=== PATIENT | female | born 1950 | race Caucasian/White ===

== ENCOUNTER 2016-10-02 20:37 | Inpatient (IN) | payer MEDICARE, BC ==
--- NOTE | ~2016-10-02 | HP ---
History And Physical [facility] [address] [place]. [address] NAME: DAMASO POE : 48 STATUS : ADM IN [facility]#: [id number] AGE: 66 ADM/REG DATE : 10/02/16 MR#: [id number] REPORT SERV DATE: 10/03/16 DICTATED BY: PHAN TAPIA DATE: 10/02/16 REPORT STATUS : Draft TRANSCRIBED BY: MODL DATE: 10/02/16 DATE OF ADMISSION: 10/02/2016 CHIEF COMPLAINT: Fever and chills today. HISTORY OF PRESENT ILLNESS: This is a 66-year-old female, who presents to the emergency room at [facility] with the above-mentioned complaint. History is obtained from the patient, her family who is at bedside, and reviewing data available on the [employer] system. According to the patient and her family, she had recently had a CABG done emergently after an angiogram was performed by her forms examiner. She was rushed to [facility] where she had the procedure. Following the coronary artery bypass she was transferred to [facility] [place] for rehabilitation where she spent the last six days. Today, she was not feeling well at all and had shaking chills. The nurse there took her vitals and found her to be febrile. She was immediately sent over here to be evaluated. In the emergency room, she met sepsis by criteria, had a urinary tract infection, and the right lower extremity surgical sites appear to be infected or inflamed. Hospitalist Service is asked to admit her for further evaluation and treatment. At the time of my evaluation, she denied any chest pain or palpitations. She had no orthopnea. She had no cough, hemoptysis, night sweats, or weight loss. She has not had any falls or loss of consciousness. She did not have any nausea, vomiting, diarrhea, hematemesis, hematochezia, or hematuria. No other history of recent travel or exposures, other than those mentioned above. PAST MEDICAL HISTORY: Significant for history of coronary artery disease status post CABG recently, history of essential hypertension, hyperlipidemia, and a history of mastectomy in the past as well. SOCIAL HISTORY: She does not smoke, drink, or use recreational drugs. FAMILY HISTORY: Noncontributory. MEDICATIONS: Medications at home were reviewed by me in the chart today and reordered by me. REVIEW OF SYSTEMS: As in history of present illness. All other system were reviewed in detail and are quite unremarkable. PHYSICAL EXAMINATION: GENERAL: This is a pleasant 66-year-old, not in any acute distress. HEENT: Her head is atraumatic and normocephalic. She is alert, awake, oriented to time, place, and person. Her pupils are equal, reacting to light and accommodating. External ocular muscles are intact. Membranes are moist and pink. Sclerae are nonicteric. History And Physical [address] [place]. [address] NAME: DAMASO POE : [birth year] STATUS : ADM IN PAT#: [id number] AGE: 66 ADM/REG DATE : 10/02/16 MR#: [id number] REPORT SERV DATE: 10/03/16 DICTATED BY: PHAN TAPIA DATE: 10/02/16 REPORT STATUS : Draft TRANSCRIBED BY: AMA DATE: 10/02/16 NECK: Supple with no jugular venous distention, lymphadenopathy, or thyromegaly. LUNGS: Auscultation of her lungs revealed few crackles in the left base, otherwise without any expiratory wheezes. Trachea appeared to be in the midline. HEART: Auscultation of her heart revealed normal rate and rhythm with no murmurs, rubs, or gallops appreciated. ABDOMEN: Soft and nontender. Bowel sounds are present. EXTREMITIES: Show redness and increased warmth in the surgical sites in the right lower extremity. There was no calf tenderness or increase in girth. No cyanosis or clubbing. NEUROLOGIC: Grossly intact. No focal sensory or motor deficits. Higher functions appeared intact. Gait was not examined. VITAL SIGNS: Her vital signs today showed a temperature of 99.9, pulse 105, respirations 19 a minute, blood pressure was 127/83. Oxygen saturations were 97%, breathing 2 L of oxygen via nasal cannula. LABORATORY DATA: Her procalcitonin was less than 0.05. CMP was essentially within normal limits with a glucose of 101. CBC showed a white blood cell count of 9,900, hemoglobin was 8.6, hematocrit 25.8, and platelet count was 414,000. Prothrombin time was 15.9 with an INR of 1.3. Urinalysis showed small leukocyte esterase, nitrite was negative. There were 15 wbc's seen. Films of the chest x-ray were reviewed by me on the PACS today and interpreted by me. No prior films are available for comparison. There is median sternotomy with the CABG done, and left-sided effusion with atelectasis. A 12-lead EKG done in the emergency room was reviewed and interpreted by me. There is normal sinus rhythm at a rate of 92 per minute without any acute ST elevations. IMPRESSION: 1. Urinary tract infection. 2. Sepsis by criteria. 3. Right lower extremity surgical site infection. 4. Recent coronary artery bypass graft at [facility]. 5. Left lower lobe atelectasis and small effusion. 6. Anemia. 7. Essential hypertension. 8. Hyperlipidemia. 9. History of mastectomy. PLAN: We will admit Mrs. Poe to the Hospitalist Service with telemetry for close monitoring. We will obtain cultures, and start her on empiric IV antibiotics. We will start her on cefepime and vancomycin. We will go ahead and consult Infectious Disease to see her in the morning. We will also get a venous Doppler of the lower extremity as well. History And Physical [address] [address] NAME: DAMASO POE : [birth year] STATUS : ADM IN [facility]#: [id number] AGE: 66 ADM/REG DATE : 10/02/16 MR#: [id number] REPORT SERV DATE: 10/03/16 DICTATED BY: PHAN TAPIA DATE: 10/02/16 REPORT STATUS : Draft TRANSCRIBED BY: AMA DATE: 10/02/16 Her left-sided effusion and atelectasis could be secondary to the coronary artery bypass surgery, but we will follow this closely. An echocardiogram may be useful as well. We will continue other home medications and treatments at this time, and also place her on unfractionated heparin for DVT prophylaxis while here. I have discussed the above plans with the patient and the family. Questions were answered and they are agreeable to the above recommendations. Hospitalist Service will be following her during her stay here. /AMA Phan Tapia M.D. / [id number] CC: Claudio Ulloa MD
--- NOTE | ~2016-10-02 | DS ---
Discharge Summary [address] [address] NAME: DAMASO FULTON : 48 STATUS : DIS IN PAT#: [id number] AGE: 66 ADM/REG DATE : 10/02/16 MR#: [id number] REPORT SERV DATE: 10/07/16 DICTATED BY: RIMA WILKINS DATE: 10/06/16 REPORT STATUS : Draft TRANSCRIBED BY: MODL DATE: 10/06/16 ADMISSION DATE: 10/02/2016 DISCHARGE DATE: 10/06/2016 DISCHARGE DIAGNOSES: 1. Sepsis. 2. Left lower lobe pneumonia. 3. Group B strep urinary tract infection. 4. Right lower extremity cellulitis at areas of recent vein graft harvest site. 5. Acute on chronic anemia. Hemoccult negative. 6. Systemic hypertension. 7. Postop day 13 CABG done at [facility] at [place]. 8. Hyperlipoproteinemia. 9. Gastroesophageal reflux disease. 10.Fibrocystic breast disease with previous surgery. 11.Subclinical hypothyroidism. OPERATIONS AND PROCEDURES: None. HISTORY OF PRESENT ILLNESS: This is a 66-year-old white female, who was triaged in the emergency room on 10/02/2016 at 1946 hours, referred from rehab in [facility] for possible cellulitis of right lower extremity. Admission vital signs in the ER, blood pressure 127/83, temp 101, pulse 105, respirations 19, O2 saturation 97% on 2 L. After evaluation in the emergency room, she was referred to the Hospitalist Service for admission. She was seen by Dr. Phan Fairchild and admitted as described on admission history and physical examination. ADDITIONAL HISTORY: Per Dr. Fairchild. PHYSICAL EXAMINATION: Per Dr. Fairchild. ADMISSION LABORATORY: Per Dr. Fairchild. HOSPITAL COURSE: She was admitted by Dr. Fairchild with; 1. Sepsis. 2. Urinary tract infection. 3. Right lower extremity surgical site infection. 4. Left lower lobe atelectasis and small effusion. 5. Recent CABG, [facility]. 6. Anemia. 7. Hypertension. 8. Hyperlipidemia. Cultures were obtained. She was started on cefepime and vancomycin. She was admitted to 6 Discharge Summary [address] [address] NAME: DAMASO FULTON : 48 STATUS : DIS IN PAT#: [id number] AGE: 66 ADM/REG DATE : 10/02/16 MR#: [id number] REPORT SERV DATE: 10/07/16 DICTATED BY: RIMA WILKINS DATE: 10/06/16 REPORT STATUS : Draft TRANSCRIBED BY: AMA DATE: 10/06/16 [place]. Her hospitalist care was assumed by the undersigned. Additional imaging was done after seen by the undersigned to further evaluate her presentation. A CT scan of her chest without contrast was done, which showed elevated left hemidiaphragm with a [id number] left pleural effusion and consolidation in the left base. There was a small right pleural effusion and right basilar atelectasis. There was COPD with interstitial fibrosis. There were numerous bilateral calcified granuloma. There were no lung masses or adenopathy. Venous ultrasound imaging of both lower extremities did not show any evidence for DVT. An echocardiogram showed intact left ventricular systolic and diastolic function. Right ventricular systolic function was normal. There was mild tricuspid valve regurgitation. On admission, her white blood cell count was 9.9 and remained normal during her hospitalization. A procalcitonin on admission was less than 0.05 and remained at this level. A C-reactive protein done post 5 days of antimicrobial therapy was 26.7. Culture data obtained on admission included a urine which grew 75,000 colonies of group B strep. Two blood cultures were drawn. No growth was present. She did not have any urinary symptoms on presentation or during her hospitalization. She did not have any cough, but did have some positional chest pain on admission, which improved by the time of discharge. Her right lower extremity had flower-incisional erythema present on admission, dramatically improved during her hospitalization. There were no hospital complications evident. Her hemoglobin was 8.6 on admission and 8 at discharge with additional evaluation including 3 stool Hemoccults that were negative. Her ferritin was high at 172, B12 at 1444, and a serum protein electrophoresis did not show any monoclonal protein. She was noted to have subclinical hypothyroidism with a TSH of 6.79 and a free T4 of 1.17. This will need to be followed in the outpatient setting. Her physical capabilities improved during her hospitalization. She thought she likely could go home rather than back to [facility]. Physical therapy evaluation was done today. Impression was home with home health care PT with family assistance and home equipment including a rolling walker and bedside commode. Today, it is felt that she has achieved a level of improvement and stability where she can be safely discharged home to have the above-mentioned home health care PT evaluation and treatment. She will have a bedside commode and rolling walker. She is to be called regarding Cardiology followup at [place] and Cardiovascular Surgery followup in [place]. An appointment has been made for her to see Dr. Tacho Meza, her primary Discharge Summary [address] [address] NAME: DAMASO FULTON : 48 STATUS : DIS IN PAT#: [id number] AGE: 66 ADM/REG DATE : 10/02/16 MR#: [id number] REPORT SERV DATE: 10/07/16 DICTATED BY: RIMA WILKINS DATE: 10/06/16 REPORT STATUS : Draft TRANSCRIBED BY: AMA DATE: 10/06/16 care physician in 1 week. Having completed 5 days of vancomycin and cefepime, she will be discharged home on 5 days of Duricef 1000 mg to take twice daily for the next 5 days. Her other home medications will be aspirin 81 mg daily, Lipitor 40 mg daily, docusate 100 mg twice daily, magnesium oxide 40 mg daily, Lopressor 25 mg twice daily, Prilosec 20 mg daily. DISCHARGE TIME: Greater than 30 minutes. DD/AMA Rima Wilkins M.D. / [id number] CC: Claudio Ulloa III, M.D.
[2016-10-02 20:28] LABS: BASOPHILS 0.2 %; BASOPHILS ABSOLUTE 0.02 10/3/uL (0.0-0.16); EOSINOPHILS 0.8 %; EOSINOPHILS ABSOLUTE 0.08 10/3/uL (0.0-0.53); ER CBC TAT 0 Hrs 03 Mins; HEMATOCRIT 25.8 % (36.0-48.0); HEMOGLOBIN 8.6 g/dL (12.0-16.0); IMMATURE GRANULOCYTES 0.3 %; IMMATURE GRANULOCYTES ABSOLUTE 0.03 10/3/uL (0.0-0.11); LYMPHOCYTES 15.7 %; LYMPHOCYTES ABSOLUTE 1.55 10/3/uL (0.67-4.30); MANUAL DIFF NO %; MEAN CORPUS HGB CONC 33.3 g/dL (32.0-36.0); MEAN CORPUSCULAR HEMOGLOB 31.5 pg (26.0-34.0); MEAN CORPUSCULAR VOLUME 94.5 fL (80-100); MEAN PLATELET VOLUME 9.4 fL (9.2-13.0); MONOCYTES 9.4 %; MONOCYTES ABSOLUTE 0.93 10/3/uL (0.21-1.20); NEUTROPHILS 73.6 %; NEUTROPHILS ABSOLUTE 7.28 10/3/uL (2.02-8.40); PLATELET COUNT 414 10/3/uL (150-400); RBC DISTRIBUTION WIDTH 14.5 % (12.0-16.0); RED CELL COUNT 2.73 10/6/uL (4.0-5.6); WHITE BLOOD CELLS 9.9 10/3/uL (4.5-10.5)
[2016-10-02 20:39] LABS: INTERNATIONAL NORMAL RATI 1.3 UNITS (-); PARTIAL THROMBO TIME 36.5 SEC (22.5-37.2); PROTIME (NOT ORD) 15.9 SEC (12.0-14.5)
[2016-10-02 20:43] LABS: A/G RATIO 0.8 (0.7-1.9); ALBUMIN 2.9 G/DL (3.5-5.0); ALKALINE PHOSPHATASE 65 U/L (45-117); BUN (BLOOD UREA NITROGEN) 10 MG/DL (6-23); CHLORIDE, SERUM 110 MMOL/L (96-112); CO2 (CARBON DIOXIDE) 27 MMOL/L (24-34); CREATININE 0.66 MG/DL (0.55-1.02); GFR AFRICAN AMERICAN 106 ML/MIN (>=60); GFR NON AFRICAN AMERICAN 91 ML/MIN (>=60); GLOBULIN 3.6 G/DL (2.5-4.1); GLUCOSE, SERUM 101 MG/DL (60-99); POTASSIUM, SERUM 3.7 MMOL/L (3.5-5.3); SGOT(AST) 13 U/L (5-40); SGPT(ALT) 30 U/L (5-65); SODIUM, SERUM 143 MMOL/L (135-148); TOTAL BILIRUBIN 0.5 MG/DL (0-1.2); TOTAL PROTEIN 6.5 G/DL (6.0-8.5)
[2016-10-02 20:46] LABS: LACTATE 0.9 MMOL/L (0.3-2.4)
[2016-10-02 21:10] LABS: ASCORBIC ACID (UR NOT ORDER) NEG (NEG); BILIRUBIN, URINE NEGATIVE (NEG); ER URINALYSIS TAT 0 Hrs 00 Mins; KETONE, URINE NEGATIVE (NEG); LEUKOCYTE ESTERASE(NOT OR SMALL (NEG); NITRITE (URINE) NEG (NEG); WBC (NOT ORDERED) (RFLEX) 15 (0-5)
[2016-10-02 21:37] LABS: PROCALCITONIN <0.05 ng/mL (<0.5)
[2016-10-02] MEDS ORDERED: LIPITOR40 PO (22:03)
[2016-10-02] MEDS ORDERED: ASAB PO (22:03)
[2016-10-02] MEDS ORDERED: MAGOX4 PO (22:04)
[2016-10-02] MEDS ORDERED: PRILO PO (22:04)
[2016-10-02] MEDS ORDERED: FERROUS SULF325 M1 PO (22:04)
[2016-10-02] MEDS ORDERED: DOCUSOFT S100 MG PO (22:04)
[2016-10-02] MEDS ORDERED: LOP25 PO (22:04)
[2016-10-03 05:41] LABS: BASOPHILS 0.1 %; BASOPHILS ABSOLUTE 0.01 10/3/uL (0.0-0.16); EOSINOPHILS 1.5 %; HEMOGLOBIN 7.6 g/dL (12.0-16.0); IMMATURE GRANULOCYTES 0.3 %; IMMATURE GRANULOCYTES ABSOLUTE 0.02 10/3/uL (0.0-0.11); LYMPHOCYTES 27.4 %; LYMPHOCYTES ABSOLUTE 1.85 10/3/uL (0.67-4.30); MEAN CORPUS HGB CONC 33.5 g/dL (32.0-36.0); MEAN CORPUSCULAR HEMOGLOB 31.4 pg (26.0-34.0); MEAN CORPUSCULAR VOLUME 93.8 fL (80-100); MEAN PLATELET VOLUME 9.3 fL (9.2-13.0); MONOCYTES 12.5 %; MONOCYTES ABSOLUTE 0.84 10/3/uL (0.21-1.20); NEUTROPHILS 58.2 %; NEUTROPHILS ABSOLUTE 3.92 10/3/uL (2.02-8.40); PLATELET COUNT 371 10/3/uL (150-400); RBC DISTRIBUTION WIDTH 14.6 % (12.0-16.0); RED CELL COUNT 2.42 10/6/uL (4.0-5.6); WHITE BLOOD CELLS 6.7 10/3/uL (4.5-10.5)
[2016-10-03 05:46] LABS: HEMATOCRIT 22.7 % (36.0-48.0); MANUAL DIFF NO %
[2016-10-03 05:51] LABS: BUN (BLOOD UREA NITROGEN) 9 MG/DL (6-23); CALCIUM, SERUM 8.7 MG/DL (8.5-10.4); CHLORIDE, SERUM 113 MMOL/L (96-112); CO2 (CARBON DIOXIDE) 24 MMOL/L (24-34); CREATININE 0.51 MG/DL (0.55-1.02); GFR AFRICAN AMERICAN 115 ML/MIN (>=60); GFR NON AFRICAN AMERICAN 100 ML/MIN (>=60); GLUCOSE, SERUM 91 MG/DL (60-99); PHOSPHORUS, SERUM 2.7 MG/DL (2.5-4.5); POTASSIUM, SERUM 3.5 MMOL/L (3.5-5.3); SODIUM, SERUM 145 MMOL/L (135-148)
[2016-10-03 12:17] LABS: T PROTEIN (ELECT)(NOT OR 5.9 G/DL (6.0-8.5)
[2016-10-03 12:41] LABS: ULTRASENSITIVE TSH 6.79 MCIU/ML (0.358-3.740)
[2016-10-04 05:08] LABS: BASOPHILS 0.2 %; BASOPHILS ABSOLUTE 0.01 10/3/uL (0.0-0.16); EOSINOPHILS 2.1 %; EOSINOPHILS ABSOLUTE 0.13 10/3/uL (0.0-0.53); HEMATOCRIT 23.7 % (36.0-48.0); HEMOGLOBIN 7.9 g/dL (12.0-16.0); IMMATURE GRANULOCYTES 0.2 %; IMMATURE GRANULOCYTES ABSOLUTE 0.01 10/3/uL (0.0-0.11); LYMPHOCYTES 30.9 %; MEAN CORPUS HGB CONC 33.3 g/dL (32.0-36.0); MEAN CORPUSCULAR HEMOGLOB 31.3 pg (26.0-34.0); MEAN PLATELET VOLUME 9.2 fL (9.2-13.0); MONOCYTES 11.4 %; NEUTROPHILS 55.2 %; NEUTROPHILS ABSOLUTE 3.39 10/3/uL (2.02-8.40); PLATELET COUNT 386 10/3/uL (150-400); RBC DISTRIBUTION WIDTH 14.4 % (12.0-16.0); RED CELL COUNT 2.52 10/6/uL (4.0-5.6); WHITE BLOOD CELLS 6.1 10/3/uL (4.5-10.5)
[2016-10-04 05:10] LABS: MANUAL DIFF NO %
[2016-10-04 05:17] LABS: BUN (BLOOD UREA NITROGEN) 9 MG/DL (6-23); CHLORIDE, SERUM 112 MMOL/L (96-112); CO2 (CARBON DIOXIDE) 25 MMOL/L (24-34); CREATININE 0.61 MG/DL (0.55-1.02); GFR AFRICAN AMERICAN 109 ML/MIN (>=60); GFR NON AFRICAN AMERICAN 94 ML/MIN (>=60); GLUCOSE, SERUM 82 MG/DL (60-99); POTASSIUM, SERUM 3.4 MMOL/L (3.5-5.3); SODIUM, SERUM 146 MMOL/L (135-148)
[2016-10-05 05:19] LABS: BASOPHILS 0.1 %; BASOPHILS ABSOLUTE 0.01 10/3/uL (0.0-0.16); EOSINOPHILS 1.5 %; EOSINOPHILS ABSOLUTE 0.11 10/3/uL (0.0-0.53); HEMATOCRIT 23.5 % (36.0-48.0); HEMOGLOBIN 7.6 g/dL (12.0-16.0); IMMATURE GRANULOCYTES 0.3 %; IMMATURE GRANULOCYTES ABSOLUTE 0.02 10/3/uL (0.0-0.11); LYMPHOCYTES 25.2 %; LYMPHOCYTES ABSOLUTE 1.83 10/3/uL (0.67-4.30); MEAN CORPUS HGB CONC 32.3 g/dL (32.0-36.0); MEAN CORPUSCULAR HEMOGLOB 30.5 pg (26.0-34.0); MEAN CORPUSCULAR VOLUME 94.4 fL (80-100); MEAN PLATELET VOLUME 9.2 fL (9.2-13.0); MONOCYTES 10.5 %; MONOCYTES ABSOLUTE 0.76 10/3/uL (0.21-1.20); NEUTROPHILS 62.4 %; NEUTROPHILS ABSOLUTE 4.53 10/3/uL (2.02-8.40); PLATELET COUNT 424 10/3/uL (150-400); RED CELL COUNT 2.49 10/6/uL (4.0-5.6); WHITE BLOOD CELLS 7.3 10/3/uL (4.5-10.5)
[2016-10-05 05:23] LABS: BUN (BLOOD UREA NITROGEN) 7 MG/DL (6-23); CALCIUM, SERUM 8.7 MG/DL (8.5-10.4); CHLORIDE, SERUM 115 MMOL/L (96-112); CO2 (CARBON DIOXIDE) 25 MMOL/L (24-34); CREATININE 0.58 MG/DL (0.55-1.02); GFR AFRICAN AMERICAN 111 ML/MIN (>=60); GFR NON AFRICAN AMERICAN 95 ML/MIN (>=60); GLUCOSE, SERUM 98 MG/DL (60-99); MANUAL DIFF NO %; PHOSPHORUS, SERUM 2.6 MG/DL (2.5-4.5); POTASSIUM, SERUM 3.8 MMOL/L (3.5-5.3); SODIUM, SERUM 145 MMOL/L (135-148)
[2016-10-05 13:22] LABS: FREE T4 1.17 NG/DL (0.76-1.46); VANCOMYCIN TROUGH 13.2 MCG/ML (10.0-20.0)
[2016-10-06 06:06] LABS: BASOPHILS 0.3 %; BASOPHILS ABSOLUTE 0.02 10/3/uL (0.0-0.16); EOSINOPHILS 2.9 %; EOSINOPHILS ABSOLUTE 0.21 10/3/uL (0.0-0.53); HEMATOCRIT 24.6 % (36.0-48.0); IMMATURE GRANULOCYTES 0.1 %; IMMATURE GRANULOCYTES ABSOLUTE 0.01 10/3/uL (0.0-0.11); LYMPHOCYTES 29.1 %; LYMPHOCYTES ABSOLUTE 2.14 10/3/uL (0.67-4.30); MEAN CORPUS HGB CONC 32.5 g/dL (32.0-36.0); MEAN CORPUSCULAR HEMOGLOB 30.7 pg (26.0-34.0); MEAN CORPUSCULAR VOLUME 94.3 fL (80-100); MEAN PLATELET VOLUME 9.1 fL (9.2-13.0); MONOCYTES 10.5 %; MONOCYTES ABSOLUTE 0.77 10/3/uL (0.21-1.20); NEUTROPHILS 57.1 %; NEUTROPHILS ABSOLUTE 4.21 10/3/uL (2.02-8.40); PLATELET COUNT 464 10/3/uL (150-400); RBC DISTRIBUTION WIDTH 14.3 % (12.0-16.0); RED CELL COUNT 2.61 10/6/uL (4.0-5.6); WHITE BLOOD CELLS 7.4 10/3/uL (4.5-10.5)
[2016-10-06 06:07] LABS: MANUAL DIFF NO %
[2016-10-06 06:22] LABS: BUN (BLOOD UREA NITROGEN) 5 MG/DL (6-23); CALCIUM, SERUM 9.2 MG/DL (8.5-10.4); CHLORIDE, SERUM 111 MMOL/L (96-112); CO2 (CARBON DIOXIDE) 27 MMOL/L (24-34); CREATININE 0.53 MG/DL (0.55-1.02); GFR AFRICAN AMERICAN 114 ML/MIN (>=60); GFR NON AFRICAN AMERICAN 98 ML/MIN (>=60); GLUCOSE, SERUM 92 MG/DL (60-99); POTASSIUM, SERUM 3.8 MMOL/L (3.5-5.3); SODIUM, SERUM 143 MMOL/L (135-148)
[2016-10-06 06:29] LABS: C-REACTIVE PROTEIN 26.7 MG/L (<8.0)
[2016-10-06 07:30] LABS: PROCALCITONIN 0.05 ng/mL (<0.5)
[2016-10-06 12:54] LABS: ALB RELATIVE % 52.4 % (60.0-89.0); ALBUMIN (ELECTRO) 3.09 GM/DL (3.2-5.5); ALPHA 1 (ELECTRO) 0.38 GM/DL (0.1-0.4); ALPHA 1 RELAT % (NOT ORD) 6.5 % (1.0-4.0); ALPHA 2 (ELECTRO) 0.93 GM/DL (0.5-1.10); ALPHA 2 RELAT % 15.7 % (4.5-26.0); BETA GLOBULIN (SPE) 0.61 GM/DL (0.60-1.30); BETA RELATIVE % 10.3 % (9.0-22.0); GAMMA GLOBULIN (SPE) 0.89 G/DL (0.70-1.60); GAMMA RELAT % 15.1 % (6.0-22.0)
[2016-10-06] MEDS ORDERED: DURICEF PO (13:37)
== END 2016-10-06 19:00 | disposition home health service (06) | DRG 862 ==
LOC: ER 20:37 → 6NO 23:16
PROVIDERS: Emergency Medicine; Hospitalist; Internal Medicine; Internal Medicine Pulmonary Disease
DX: T81.4XXA Infection following a procedure, initial encounter (principal); A41.9 Sepsis, unspecified organism; J18.9 Pneumonia, unspecified organism; J90 Pleural effusion, not elsewhere classified; J84.10 Pulmonary fibrosis, unspecified; N39.0 Urinary tract infection, site not specified; J98.11 Atelectasis; L03.115 Cellulitis of right lower limb; I25.10 Atherosclerotic heart disease of native coronary artery without angina pectoris; D64.9 Anemia, unspecified; I10 Essential (primary) hypertension; I07.1 Rheumatic tricuspid insufficiency; E78.5 Hyperlipidemia, unspecified; B95.1 Streptococcus, group B, as the cause of diseases classified elsewhere; N60.19 Diffuse cystic mastopathy of unspecified breast; E03.9 Hypothyroidism, unspecified; K21.9 Gastro-esophageal reflux disease without esophagitis; E87.6 Hypokalemia; Z95.1 Presence of aortocoronary bypass graft; Z90.10 Acquired absence of unspecified breast and nipple
CPT/HCPCS: 71010; 71250; 80048; 80053; 80202; 81001; 82272; 82607; 82728; 83605; 83615; 83735; 84100; 84132; 84145; 84155; 84165; 84439; 84443; 85025; 85610; 85730; 86140; 87040; 87086; 87449; 93005; 93970; 96365; 97162-GP; 99285; A9270-GY; C8929; G8978-CK-GP; G8979-CI-GP; J0692; J3370; Q9957